=== PATIENT | female | born 1960 | race Caucasian/White ===

== ENCOUNTER 2018-02-01 13:23 | Inpatient (IN) ==
[2018-02-01] MEDS ORDERED: *HR* Heparin 5,000 UNIT/ML VIAL IVP PRN ×2 (16:06)
[2018-02-01] MEDS ORDERED: *HR* Heparin 5,000 UNIT/ML VIAL IVP ONE (16:06)
--- NOTE | 2018-02-01 16:09 | Internal Med History&Physical ---
Date of Encounter: 02/01/18 Time of Encounter: 15:00 Internal Medicine - H&P: HPI Admitted From: Home Plans for Post Hospital Care: Home History of present illness: Ms. Tao is a 57 year old female with past medical history, diabetes type II , obesity, elevated transaminases, gall stone, s/p ashanti and liver bx at [facility] January 20. She states she woke up this morning and checked her BP. States she noted that her HR was in the 150's. She had a scheduled appointment with her PCP today. While at PCP office, it was noted that she was in afib. She was sent to [place] ED for further work up and was transferred here for cardiology evaluation. P was started on Cardizem gtt and will add Heparin drip here. Pt's and other family members at bedside. Pt reports having chest pain. Her HR increases with increase in minimal activity followed by chest discomfort and SOB. In ED at [place] WBC 4.6, hgb 4.9, plt 275. INR 1.0. Troponin <0.03 Na 138, K 3.9, BUN 14, Cr 0.64. D dimer 1285. TSH 3.744. AST 67, ALT 58. CTA chest negative for PE. CT/CT angio chest IMPRESSION: No convincing evidence of pulmonary embolism or acute pulmonary abnormality ; a subtle focal filling defect in a subsegmental branch of the left lower lobe pulmonary artery is felt to be artifactual in nature. D/ / Ernie Cabrera / Ernie Cabrera Past Med Surg Social Fam HX - Past Medical History Medical history: diabetes, GERD, hypertension Psychiatric history: no psych history - Social History Smoking Status: Never smoker Smokeless Tobacco Status: No Alcohol use: rarely Drug use: none Internal Medicine - H&P: Meds Amlodipine Besylate 10 mg PO DAILY 02/01/18 [History] Cyclobenzaprine HCl [Cyclobenzaprine HCl] 10 mg PO TID 02/01/18 [History] Linagliptin [Tradjenta] 5 mg PO DAILY 02/01/18 [History] Lipase/Protease/Amylase [Zenpep Dr 40,000 Units Capsule] 1 each PO DAILY [History] Lisinopril/Hydrochlorothiazide [Zestoretic 10-12.5 mg Tablet] 1 each PO DAILY [History] Lovastatin 10 mg PO DAILY 02/01/18 [History] Metformin HCl [Glucophage] 1,000 mg PO BID 02/01/18 [History] Naproxen [Naprosyn] 500 mg PO DAILY 02/01/18 [History] Pantoprazole Sodium [Protonix] 40 mg PO DAILY 02/01/18 [History] Sertraline [Zoloft] 25 mg PO DAILY 02/01/18 [History] glyBURIDE [GlyBURIDE] 5 mg PO DAILY 02/01/18 [History] 3 Allergy/AdvReac Type Severity Reaction Status Date / Time Sulfa (Sulfonamide Allergy Hives Verified 02/01/18 09:18 Antibiotics) All Systems PM: A 10-system review of systems was performed and is negative for pertinent findings except as documented above in the HPI. - Constitutional Vitals: Temp Pulse Resp BP Pulse Ox 97.9 F 95 18 140/88 95 02/01/18 15:13 02/01/18 15:13 02/01/18 15:13 02/01/18 15:13 02/01/18 15:13 General appearance: Present: A&O X 3, morbidly obese - Head Head exam: Present: atraumatic, normocephalic - Eye Eye exam: Present: PERRL, conjuntiva pink, sclera anicteric Pupils: Present: PERRL - Neck Neck exam general surgery: Present: supple, trachea midline. Absent: lymphadenopathy - Respiratory Respiratory exam: Present: CTAB. Absent: accessory muscle use, rales, rhonchi, wheezes - Cardiovascular Cardiovascular exam: Present: RRR, +S1, +S2. Absent: diastolic murmur, gallop, rubs, systolic murmur - GI/Abdominal GI/Abdominal exam: Present: normal bowel sounds, soft, no peritoneal signs. Absent: distended, tenderness - Extremities Exam Extremities exam: Present: warm, radial pulses palpable and symmetrical. Absent : calf tenderness, cyanotic, pedal edema - Neurological Exam Neurological exam: Present: CN II-XII intact, oriented X3, no focal deficits. Absent: pronater drift, facial droop, speech deficit - Skin Skin exam: Present: dry, intact - Assessment and plan (1) Atrial fibrillation with rapid ventricular response Current Visit: No Status: Acute Assessment and plan: New onset Afib per pt. Will continue with cardizem gtt and will add Heparin. Ordering Echo. Will monitor on telemetry. Discussed with cardiology and will see in consult. NPO after midnight. (2) Chest pain Current Visit: Yes Status: Acute Assessment and plan: Will cycle troponin, ASA QD, and Nitro SL prn. Oxygen prn a well. Qualifiers: Qualified Code(s): R07.9 - Chest pain, unspecified (3) Type II diabetes mellitus Current Visit: Yes Status: Acute Assessment and plan: Glyburide, tradjenta, and Metformin. Will place on SSI and Lantus.Will monitor glucose. Qualifiers: Qualified Code(s): E11.9 - Type 2 diabetes mellitus without complications (4) Morbid obesity Current Visit: Yes Status: Acute Assessment and plan: Life style modification such as diet and exercise recommended. (5) Dyslipidemia Current Visit: Yes Status: Acute Assessment and plan: Lovastatin (6) HTN (hypertension) Current Visit: Yes Status: Acute Assessment and plan: Holding Norvac for now. Continue Zestorectic 10/12.5mg QD Qualifiers: Qualified Code(s): I10 - Essential (primary) hypertension - Time Spent With Patient Total time spent is greater than 50% in coordination of care (as documented) at patient's floor/unit and/or counseling patient: 25 - 35 minutes
[2018-02-01] MEDS ORDERED: Dextrose Gel 15 GM/37.5 ML TUBE PO PRN ×2 (16:19)
[2018-02-01] MEDS ORDERED: *HR* Dextrose 50 % in Water (Syg) 50 ML SYRINGE IVP PRN (16:19)
[2018-02-01] MEDS ORDERED: D5% in Water 1,000 ML IVC PRN (16:19)
[2018-02-01] MEDS ORDERED: Naloxone 0.4 MG/ML INJ IVP PRN (16:20)
[2018-02-01] MEDS ORDERED: Nitroglycerin 0.4 MG TAB.SUBL SL PRN (16:20)
[2018-02-01] MEDS ORDERED: Ondansetron 4 MG/2 ML VIAL IVP PRN (16:20)
[2018-02-01] MEDS ORDERED: Acetaminophen 325 MG TABLET PO PRN (16:20)
[2018-02-01 16:27] LABS: Hematocrit 39.9 % (35.3-44.9); Hemoglobin 13.8 g/dL (11.5-15.4); Mean Corpuscular HGB Conc 34.6 g/dL (31.6-35.5); Mean Corpuscular Hemoglobin 28.7 pg (28.0-33.3); Mean Platelet Volume 8.5 fL (9.4-12.4); Platelet Count 271 K/mcL (140-400); Red Blood Count 4.81 M/mcL (3.82-4.97); Red Cell Distribution Width 12.4 % (11.5-14.5)
[2018-02-01 16:31] LABS: Heparin anti-factor XA UFH 0.05 IU/mL (0.30-0.70)
[2018-02-01 16:32] LABS: INR 1.1; Prothrombin Time 12.1 Seconds (9.4-12.1)
[2018-02-01 17:01] LABS: Estimated Average Glucose 143 mg/dl; Hemoglobin A1C 6.6 %
[2018-02-01] MEDS: Insulin LISPRO 300 UNITS/3 ML VIAL SQ SCH (17:04)
[2018-02-01] MEDS: Heparin 25,000 UNIT/500 ML D5W 25,000 UNIT/500 ML BAG IVC SCH (17:18)
[2018-02-01] MEDS: Insulin DETEMIR 100 UNIT/ML X5UNITS SQ SCH (21:18)
[2018-02-01] MEDS ORDERED: Perflutren Lipid Microsphere 1.3 ML in 0.9 % Sodium Chloride 8.7 ML IVP ONE (22:25)
[2018-02-01] MEDS ORDERED: Perflutren Lipid Microsphere 2 ML VIAL ONE (22:28)
[2018-02-02 00:56] LABS: Basophils % 0.9 %; Eosinophils # 0.3 K/mcL (0.0-0.6); Eosinophils % 7.2 %; Hematocrit 39.7 % (35.3-44.9); Hemoglobin 13.6 g/dL (11.5-15.4); Immature Granulocytes % 0.4 % (0-4); Lymphocytes # 1.7 K/mcL (0.6-4.6); Lymphocytes % 37.9 %; Mean Corpuscular HGB Conc 34.3 g/dL (31.6-35.5); Mean Corpuscular Hemoglobin 28.8 pg (28.0-33.3); Mean Corpuscular Volume 84.1 fL (83.0-100.0); Mean Platelet Volume 8.8 fL (9.4-12.4); Monocytes # 0.3 K/mcL (0.0-1.3); Monocytes % 5.9 %; Neutrophils # 2.2 K/mcL (1.6-8.9); Platelet Count 260 K/mcL (140-400); Red Blood Count 4.72 M/mcL (3.82-4.97); Red Cell Distribution Width 12.6 % (11.5-14.5); Segmented Neutrophils % 47.7 %
[2018-02-02 01:01] LABS: Heparin anti-factor XA UFH 0.41 IU/mL (0.30-0.70); INR 1.1; Prothrombin Time 12.4 Seconds (9.4-12.1)
[2018-02-02 01:20] LABS: Alanine Aminotransferase 53 Units/L (7-52); Albumin 3.9 g/dL (3.5-5.7); Albumin/Globulin Ratio 1.2 (1.1-2.2); Alkaline Phosphatase 64 Units/L (34-104); Aspartate Amino Transferase 62 Units/L (13-39); BUN/Creatinine Ratio 21 (6-26); Bilirubin,Total 0.5 mg/dL (0.3-1.0); Blood Urea Nitrogen 13 mg/dL (6-20); Calcium 9.5 mg/dL (8.6-10.3); Carbon Dioxide 23 mEq/L (23-29); Chloride 103 mEq/L (98-107); Chol/HDL Ratio 4.4 (0-4.9); Cholesterol 166 mg/dL (< 200); Globulin 3.2 g/dL (2.4-3.5); Glucose 113 mg/dL (70-105); HDL Cholesterol 38 mg/dL (40-59); LDL Cholesterol,Calculated 80 mg/dL (0-99); Magnesium 1.8 mg/dL (1.6-2.6); Osmolality,Calculated 285 (280-300); Potassium 3.4 mEq/L (3.5-5.1); Sodium 137 mEq/L (136-145); Total Protein 7.1 g/dL (6.4-8.9); Triglycerides 242 mg/dL (< 150); Troponin I < 0.03 ng/mL (< 0.04); eGFR For Non-African Americans > 60 (> 60)
[2018-02-02] MEDS: Heparin 25,000 UNIT/500 ML D5W 25,000 UNIT/500 ML BAG IVC SCH (09:08)
[2018-02-02] MEDS: Aspirin 81 MG TAB.CHEW PO SCH (09:09)
[2018-02-02] MEDS: hydroCHLOROthiazide 25 MG TABLET PO SCH (09:10)
[2018-02-02] MEDS: Insulin LISPRO 300 UNITS/3 ML VIAL SQ SCH ×3 (09:10→16:43)
--- NOTE | 2018-02-02 09:23 | Cardiology Consult Note ---
Date of Encounter: 02/02/18 Time of Encounter: 08:45 Assessment and Plan (1) Atrial fibrillation with RVR Current Visit: Yes Status: Acute Pt presented with new onset A Fib with RVR , ventricular rate of 126 pm EKG -pt was started on Cardizem drip at 7.5mL/hr and Heparin drip running at 31.4 mL /hr -currently rate and rhythm controlled, monitoring on telemetry -troponins negative x 2 in the ER -CT of the chest was negative for PE Currently the pt is not in active chest pain and denies any SOB, palpiltations, N/V/D -she denies a personal hx of PR/prior LHC and denies a FH of early heart dz LVEF 60% Plan: -pt is on Aspirin 81mg PO daily -pt is on Cardizem 30mg PO q6hr Oral dose (in mg per day) = [rate (mg/hr) x 3 + 3] x 10, using this calculation the pt should be on ~255mg PO daily and is currently on 120mg PO caridzem daily, suggest increasing Cardizem dosage to 60mg PO q6hr for adequate control -continue on Cardizem 7.5mL/hr -continue telemetry monitoring -[id number] score of 3, pt would benefit from Coumadin or a NOAC. Will discuss prior to discharge which would be most beneficial for pt -Stress test today, nuclear medicine type (2) Dyslipidemia Current Visit: No Status: Chronic TG of 242, cholesterol 166, LDL 80. VLDL 48, HDL 38 -pt is not on a antilipid rx Plan: -add Lipitor 40mg PO daily -suggest lifestyle modifications (3) Hypokalemia Current Visit: Yes Status: Acute Pt has a Potassium of 3.4 today Plan -replaced with potassium chloride PO 40mEq once -check electrolytes in AM (4) HTN (hypertension) Current Visit: Yes Status: Acute BP on admission was 140/88 -BP this morning 120/79 Plan: -pt is on Lisinopril 10mg PO daily, HCTZ 12.5 mg PO daily -continue home meds Qualifiers: Hypertension type: essential hypertension Qualified Code(s): I10 - Essential (primary) hypertension Discussion w patient/family: The assessment and plan as outlined above was discussed with the patient and/or family members who expressed understanding and agreement. All questions were answered. Thank you for involving us in the care of your patient. Please call with any questions. History of Present Illness Consult date: 02/01/18 Requesting physician: Shikha Lane Consult reason: Afib with RVR Chief complaint: "high BP" History of present illness: Ms. Tao is a 57 year old female with a PMH of HTN, T2DM, and obesity. She is s/p cholecystectomy and liver bx at [facility] on January 20. The pt reports waking up yesterday morning and checking her BP, which was elevated from her baseline a 139/88 and HR at 151. She already had an appt with her PCP and went to her regular appt and was found to be in AFib. She was then sent to the [place] ED for further workup and then transferred to [place] for cardiology eval. -the pt was started on Cardizem and primary team added Heparin drip currently running at 31.4 mL/hr Pt reports having chest pain yesterday that was located on the left side and associated with palpiltations -she denies having any nausea/vomiting -her HR increases with increased activity and she has CP/SOB when she exerts herself too much -she is unable to lay completely flat and c/o SOB when she has to. In the ER the pt had a CT of the chest which was negative for PE -she had negative troponins <0.03 x2 EKG yesterday showed a fib with RVR and nonspecific ST and T wave abnormality -pt is currently on telemtry and she has a regular rate and rhythm -HR at 62 bpm, BP 120/79 Pt denies any CAD, heart attacks in the past or hx of stents -she denies an early FH of heart dz Fluids - none Electrolytes - Potassium at 3.4, will replace Nutrition - currently NPO DVT prophylaxis - on heparin drip GI prophylaxis - omeprazole 40mg PO daily Past Med Surg Social Fam HX - Past Medical History Medical history: diabetes, GERD, hypertension Psychiatric history: no psych history - Social History Smoking Status: Never smoker Smokeless Tobacco Status: No Alcohol use: rarely Drug use: none - Family History Mother Living Status: Hx Family Cardiac Disorders: Yes Father Hx Family Cardiac Disorders: Yes Medications and Allergies Linagliptin [Tradjenta] 5 mg PO DAILY 02/01/18 [History] Lipase/Protease/Amylase [Zenpep Dr 40,000 Units Capsule] 1 each PO DAILY [History] Metformin HCl [Glucophage] 1,000 mg PO BID 02/01/18 [History] Pantoprazole Sodium [Protonix] 40 mg PO DAILY 02/01/18 [History] Lisinopril/Hydrochlorothiazide [Zestoretic 20-25 mg Tablet] 1 tab PO DAILY 02/02 [History] 3 Allergy/AdvReac Type Severity Reaction Status Date / Time Sulfa (Sulfonamide Allergy Hives Verified 02/02/18 08:43 Antibiotics) All Systems Review: The remainder of the systems were reviewed and are negative - Constitutional Constitutional: no fever(s), no snoring, no stops breathing during sleep - Cardiovascular Cardiovascular: chest pain with exertion, dyspnea on exertion, irregular heart rhythm, orthopnea, palpitations, paroxysmal nocturnal dyspnea, no diaphoresis - Respiratory Respiratory: no cough, no wheezing - Gastrointestinal Gastrointestinal: abdominal pain, no diarrhea, no nausea - Neurological Neurological: no numbness, no tingling Physical Examination Vital Signs, Last 4 Hours Temp Pulse Resp BP Pulse Ox 02/02/18 07:03 98.4 F 62 15 120/79 98 General: Conversant, No Apparent Distress HEENT: Atraumatic, Normocephaly Neck: No JVD Cardiac: Reg Rate and Rhythm, Normal S1 and S2, No Murmur Lungs: Normal Breath Sounds, No Wheeze, Rales, Rhonchi Neuro: Alert and responsive, No focal deficits noted Abdomen: Other (TTP in the RUQ where cholecystectomy was done) Skin: No rashes noted on visualized skin Musculoskeletal: No Chest Wall Tenderness Extremities: No Edema Results 02/02/18 00:02 02/02/18 00:02 Lab Results 02/01/18 02/01/18 02/01/18 16:17 16:17 16:30 WBC 5.2 Hgb 13.8 Hct 39.9 Plt Count 271 INR 1.1 Sodium Potassium Chloride Carbon Dioxide BUN Creatinine Glucose Calcium Magnesium Total Bilirubin AST ALT Alkaline Phosphatase Troponin I < 0.03 02/02/18 02/02/18 02/02/18 00:02 00:02 00:02 WBC 4.6 Hgb 13.6 Hct 39.7 Plt Count 260 INR 1.1 Sodium 137 Potassium 3.4 L Chloride 103 Carbon Dioxide 23 BUN 13 Creatinine 0.62 Glucose 113 H Calcium 9.5 Magnesium 1.8 Total Bilirubin 0.5 AST 62 H ALT 53 H Alkaline Phosphatase 64 Troponin I < 0.03 02/02/18 05:33 WBC Hgb Hct Plt Count INR Sodium Potassium Chloride Carbon Dioxide BUN Creatinine Glucose Calcium Magnesium Total Bilirubin AST ALT Alkaline Phosphatase Troponin I < 0.03 Consult Discharge Plan - Plan Instructions: Diltiazem (By mouth), Atrial Fibrillation (DC), Atrial Fibrillation (GEN), Chest Pain (DC), Diabetes Mellitus Type 2 in Adults (DC), Chronic Hypertension (DC) Additional Instructions: 's office will call patient for follow up appointment. Referrals: Mary Foy, NAIDA [Primary Care Provider] - ('s office will call patient for follow up appointment.)
[2018-02-02] MEDS ORDERED: Regadenoson 0.4 MG/5 ML SYRINGE IVP ONE (12:22)
--- NOTE | 2018-02-02 14:34 | Event Note ---
Date of Encounter: 02/02/18 Time of Encounter: 14:30 Converting the short acting cardizem 30mg PO q6hr to LA 120mg once daily. -first dose now and will see how pt is tolerating it
[2018-02-02] MEDS: Diltiazem CD (24hr) 120 MG CAPSULE PO SCH (15:17)
--- NOTE | 2018-02-02 18:00 | Internal Med Progress Note ---
<AlejandroShahrzad Zuri - Last Filed: 02/02/18 18:14> Hospitalist Progress Note - Encounter Date of Encounter: 02/02/18 Time of Encounter: 09:30 - Subjective Interval History: Today is hospital day 1, Ms. Tao states that she is feeling a bit better. She states that she has a headache behind both eyes that is described as a tingling sensation which began after the cardizem and heparin drips were started. She states that it is similar to headaches she has had in the past and she denies any neurological deficits. She states that the palpitations and chest pressure she experienced earlier while heart rate uncontrolled have resolved. She states that shortness of breath is still present at exertion. She states that it is painful for her to take a deep breath but that is unchanged since her lap ashanti and liver biopsy on January 20, 2018. She states that she also has abdominal pain around laparoscopy incisions that is still present from procedure. She denies any fever, chills, nausea, vomiting, constipation, diarrhea, frequency, urgency or calf pain. - Exam Vitals: Temp Pulse Resp BP Pulse Ox 98.2 F 62 15 138/85 97 02/02/18 16:00 02/02/18 16:00 02/02/18 16:00 02/02/18 16:00 02/02/18 16:00 Exam: General: Resting comfortably, in no acute distress, AAOx3, pleasant, nasal cannula in place HEENT: Normocephalic, atraumatic, EOMI, PERRL, mucus membranes moist. Neck soft , supple, trachea midline, no cervical lymphadenopathy. Cardio: RRR, no murmurs, rubs or gallops. Normal S1, S2. No carotid bruits. Pulmonary: No wheezes, rales or rhonchi. No accessory respiratory muscle use. Abdomen: Tenderness to palpation around lap cholecystectomy incisions, incisions healing well and no signs of infection. Soft, non distended, normal bowel sounds, no guarding, rebound or rigidity. No CVA or suprapubic tenderness. Extremities: Radial and dorsal pedis pulses 2+ and symmetrical, normal capillary refill, no clubbing. No calf tenderness. Trace pitting edema bilaterally Neuro: CN 2-12 intact, no focal deficits. Psych: Normal mood and affect, answers questions appropriately - Assessment and Plan (1) Atrial fibrillation with RVR Current Visit: Yes Status: Acute Assessment and Plan: New onset EKG 02/01/18 showed atrial fibrillation with rapid ventricular rate and non specific ST and T wave abnormalities ECHO 02/01/18 showed LVEF 60%, indeterminate diastolic function, mild tricuspid and pulmonic regurgitation, no pulmonary hypertension. Continue heparin drip Continue cardizem po, aspirin Cardio recs for oysterman anticoagulant continue to monitor (2) Type II diabetes mellitus Current Visit: Yes Status: Acute Assessment and Plan: Glucose today 113 continue low dose sliding scale and levemir hold home meds: metformin, glyburide, tradjenta. continue to monitor (3) HTN (hypertension) Current Visit: Yes Status: Acute Assessment and Plan: Controlled, 120/79 at time of interview continue home meds hydrochlorothiazide and lisinopril continue to monitor (4) Dyslipidemia Current Visit: No Status: Chronic Assessment and Plan: Continue statin (5) Hypokalemia Current Visit: Yes Status: Acute Assessment and Plan: Was 3.4 today, replaced by cardio. Continue to monitor DVT Prophylaxis: Heparin drip - Time Spent with Patient Total time spent is greater than 50% in coordination of care (as documented) at patient's floor/unit and/or counseling patient: Internal Medicine: Result - Labs CBC & Chem 7: 02/02/18 00:02 02/02/18 00:02 Labs: Short CBC 02/02/18 Range/Units 00:02 WBC 4.6 (4.3-11.1) K/mcL Hgb 13.6 (11.5-15.4) g/dL Hct 39.7 (35.3-44.9) % Plt Count 260 (140-400) K/mcL Neutrophils # 2.2 (1.6-8.9) K/mcL BMP 02/02/18 00:02 Sodium 137 Potassium 3.4 L Chloride 103 Carbon Dioxide 23 BUN 13 Creatinine 0.62 Glucose 113 H Calcium 9.5 Cardiac Enzymes 02/02/18 02/02/18 Range/Units 00:02 05:33 Troponin I < 0.03 < 0.03 (< 0.04) ng/mL Liver Function 02/02/18 Range/Units 00:02 Total Bilirubin 0.5 (0.3-1.0) mg/dL AST 62 H (13-39) Units/L ALT 53 H (7-52) Units/L Alkaline Phosphatase 64 (34-104) Units/L Albumin 3.9 (3.5-5.7) g/dL - ABG Interpretation ABG results: PT/INR, D-dimer PT 12.4 Seconds (9.4-12.1) H 02/02/18 00:02 - Impressions Impressions Echocardiogram 02/01/18 16:20 Impressions: LVEF 60%. Indeterminate diastolic function. Normal right ventricular structure and function. Mild tricuspid regurgitation. Mild pulmonic regurgitation. No pulmonary hypertension by TR gradient. Left Ventricular Wall Motion: Rest Echo Findings All wall segments showed normal motion. Findings: Study Quality * Technically adequate exam. ECG Findings * Normal sinus rhythm. Left Ventricle * LVEF 60%. * Indeterminate diastolic function. * Definity echo contrast was used. * Normal LV chamber size and wall thickness. Right Ventricle * Normal right ventricular structure and function. Left Atrium * Moderately dilated left atrium. Right Atrium * Normal right atrial size. Aortic Valve * No aortic regurgitation. * Trileaflet aortic valve. * No aortic stenosis. Mitral Valve * Normal mitral valve structure. * No mitral stenosis. * Trace mitral regurgitation. Tricuspid Valve * Normal tricuspid valve structure. * Mild tricuspid regurgitation. Pulmonic Valve * Pulmonic valve is not well visualized. * No pulmonic stenosis. * Mild pulmonic regurgitation. Pulmonary Artery * Pulmonary artery not well visualized. Aorta * Normally sized aortic root. Pericardium * There is no pericardial effusion present. Interatrial Septum * Interatrial septum not well evaluated. IVC * The IVC is not well evaluated. Consult Discharge Plan - Plan Instructions: Diltiazem (By mouth), Atrial Fibrillation (DC), Atrial Fibrillation (GEN), Chest Pain (DC), Diabetes Mellitus Type 2 in Adults (DC), Chronic Hypertension (DC) Additional Instructions: 's office will call patient for follow up appointment. Referrals: Mary Foy CNP [Primary Care Provider] - ('s office will call patient for follow up appointment.) <Breezy Ball - Last Filed: 02/02/18 19:13> Hospitalist Progress Note - Encounter Date of Encounter: 02/02/18 - Exam Vitals: Temp Pulse Resp BP Pulse Ox 98.2 F 62 15 138/85 97 02/02/18 16:00 02/02/18 16:00 02/02/18 16:00 02/02/18 16:00 02/02/18 16:00 - Assessment and Plan (1) Chest pain Current Visit: Yes Status: Suspected (2) Paroxysmal A-fib Current Visit: Yes Status: Acute (3) HTN (hypertension) Current Visit: Yes Status: Acute (4) Hypokalemia Current Visit: Yes Status: Acute (5) Type II diabetes mellitus Current Visit: Yes Status: Acute (6) Morbid obesity Current Visit: Yes Status: Acute - Time Spent with Patient Total time spent is greater than 50% in coordination of care (as documented) at patient's floor/unit and/or counseling patient: Internal Medicine: Result - Labs CBC & Chem 7: 02/02/18 00:02 02/02/18 00:02 Labs: Short CBC 02/02/18 Range/Units 00:02 WBC 4.6 (4.3-11.1) K/mcL Hgb 13.6 (11.5-15.4) g/dL Hct 39.7 (35.3-44.9) % Plt Count 260 (140-400) K/mcL Neutrophils # 2.2 (1.6-8.9) K/mcL BMP 02/02/18 00:02 Sodium 137 Potassium 3.4 L Chloride 103 Carbon Dioxide 23 BUN 13 Creatinine 0.62 Glucose 113 H Calcium 9.5 Cardiac Enzymes 02/02/18 02/02/18 Range/Units 00:02 05:33 Troponin I < 0.03 < 0.03 (< 0.04) ng/mL Liver Function 02/02/18 Range/Units 00:02 Total Bilirubin 0.5 (0.3-1.0) mg/dL AST 62 H (13-39) Units/L ALT 53 H (7-52) Units/L Alkaline Phosphatase 64 (34-104) Units/L Albumin 3.9 (3.5-5.7) g/dL - ABG Interpretation ABG results: PT/INR, D-dimer PT 12.4 Seconds (9.4-12.1) H 02/02/18 00:02 - Impressions Impressions Echocardiogram 02/01/18 16:20 Impressions: LVEF 60%. Indeterminate diastolic function. Normal right ventricular structure and function. Mild tricuspid regurgitation. Mild pulmonic regurgitation. No pulmonary hypertension by TR gradient. Left Ventricular Wall Motion: Rest Echo Findings All wall segments showed normal motion. Findings: Study Quality * Technically adequate exam. ECG Findings * Normal sinus rhythm. Left Ventricle * LVEF 60%. * Indeterminate diastolic function. * Definity echo contrast was used. * Normal LV chamber size and wall thickness. Right Ventricle * Normal right ventricular structure and function. Left Atrium * Moderately dilated left atrium. Right Atrium * Normal right atrial size. Aortic Valve * No aortic regurgitation. * Trileaflet aortic valve. * No aortic stenosis. Mitral Valve * Normal mitral valve structure. * No mitral stenosis. * Trace mitral regurgitation. Tricuspid Valve * Normal tricuspid valve structure. * Mild tricuspid regurgitation. Pulmonic Valve * Pulmonic valve is not well visualized. * No pulmonic stenosis. * Mild pulmonic regurgitation. Pulmonary Artery * Pulmonary artery not well visualized. Aorta * Normally sized aortic root. Pericardium * There is no pericardial effusion present. Interatrial Septum * Interatrial septum not well evaluated. IVC * The IVC is not well evaluated. - Attending Attestation I examined this patient and my medical decision-making was reviewed with the Resident Physician on 02/02/18. I agree with the documented findings, disposition and treatment plan as described except to the extent set forth below. Ms Tao is currently admitted for new paroxysmal a fib. She is getting stress test and is on heparin drip. She remains moderate to high risk due to potential for worsening clinical status. Ms Tao is feeling OK. She is now in sinus rhythm. She had first part of stress today. Currently on heparin drip and tolerating this. Exam alert Comfortable Mucus membranes dry Heart reg No wheeze Abd soft No edema I/P 1. A fib 2. Obesity Further diagnoses and plan as above. <Shahrzad Allen - Last Filed: 02/02/18 18:14> (3) HTN (hypertension) Qualifiers: Hypertension type: essential hypertension Qualified Code(s): I10 - Essential (primary) hypertension <Breezy Ball - Last Filed: 02/02/18 19:13> (1) Chest pain Qualifiers: Chest pain type: chest pain due to myocardial ischemia Ischemic chest pain type: unstable angina pectoris Qualified Code(s): I20.0 - Unstable angina (3) HTN (hypertension) Qualifiers: Hypertension type: essential hypertension Qualified Code(s): I10 - Essential (primary) hypertension (5) Type II diabetes mellitus Qualifiers: Diabetes mellitus fpc insulin use: without oysterman use Diabetes mellitus complication status: without complication Qualified Code(s): E11.9 - Type 2 diabetes mellitus without complications
[2018-02-02] MEDS: Insulin DETEMIR 100 UNIT/ML X5UNITS SQ SCH (20:55)
[2018-02-03] MEDS: Heparin 25,000 UNIT/500 ML D5W 25,000 UNIT/500 ML BAG IVC SCH (01:15)
[2018-02-03 04:55] LABS: Alanine Aminotransferase 63 Units/L (7-52); Albumin/Globulin Ratio 1.3 (1.1-2.2); Alkaline Phosphatase 63 Units/L (34-104); Aspartate Amino Transferase 76 Units/L (13-39); BUN/Creatinine Ratio 16 (6-26); Bilirubin,Total 0.5 mg/dL (0.3-1.0); Blood Urea Nitrogen 9 mg/dL (6-20); Calcium 9.3 mg/dL (8.6-10.3); Carbon Dioxide 22 mEq/L (23-29); Chloride 104 mEq/L (98-107); Globulin 3.2 g/dL (2.4-3.5); Glucose 134 mg/dL (70-105); Osmolality,Calculated 283 (280-300); Sodium 136 mEq/L (136-145); Total Protein 7.2 g/dL (6.4-8.9); eGFR For Non-African Americans > 60 (> 60)
[2018-02-03] MEDS: hydroCHLOROthiazide 25 MG TABLET PO SCH (07:47)
[2018-02-03] MEDS: Diltiazem CD (24hr) 120 MG CAPSULE PO SCH (07:47)
[2018-02-03] MEDS: Aspirin 81 MG TAB.CHEW PO SCH (07:48)
[2018-02-03] MEDS: Insulin LISPRO 300 UNITS/3 ML VIAL SQ SCH ×2 (07:51→12:39)
--- NOTE | 2018-02-03 09:16 | Cardiology Progress Note ---
Date of Encounter: 02/03/18 Time of Encounter: 08:30 Assessment and Plan (1) Atrial fibrillation with RVR Current Visit: Yes Status: Resolved Pt presented with new onset A Fib with RVR , ventricular rate of 126 pm EKG. Admitted 02/01/18, hospital day #2 -pt was started on Cardizem drip at 7.5mL/hr and Heparin drip running at 31.4 mL /hr, was transitioned to PO Cardizem 120mg and heparin drip discontinued today -currently rate and rhythm controlled, monitoring on telemetry -in normal sinus rhythm, HR 60 bpm -troponins negative x 2 in the ER -CT of the chest was negative for PE Currently the pt is not in active chest pain and denies any SOB, palpiltations, N/V/D -she denies a personal hx of VT/prior LHC and denies a FH of early heart dz ECHO yesterday showed LVEF 60%, mild tricuspid regurg, mild pulmonic regurg, no pHTN Pt got second part of stress test this morning, results are negative for ischemia/infarct, gated EF >70% Plan: -pt is on Aspirin 81mg PO daily -pt is on Cardizem 120 mg PO daily, tolerating this dose and is in normal sinus rhythm -continue telemetry monitoring -discontinue heparin drip -[id number] score of 3 -Start Xarelto 20mg PO daily -pt stable from a cardiology standpoint for discharge and we will sign off at this point (2) Dyslipidemia Current Visit: No Status: Chronic TG of 242, cholesterol 166, LDL 80. VLDL 48, HDL 38 -pt is not on a antilipid rx Plan: -add Lipitor 40mg PO daily -suggest lifestyle modifications (3) HTN (hypertension) Current Visit: Yes Status: Acute BP on admission was 140/88 -BP this morning 120/67 -adequate control Plan: -pt is on Lisinopril 10mg PO daily, HCTZ 12.5 mg PO daily -continue home meds Qualifiers: Hypertension type: essential hypertension Qualified Code(s): I10 - Essential (primary) hypertension Discussion w patient/family: The assessment and plan as outlined above was discussed with the patient and/or family members who expressed understanding and agreement. All questions were answered. Thank you for involving us in the care of your patient. Please call with any questions. Subjective Principal diagnosis: A fib with RVR Interval history: Pt is seen at bedside. She has no new complaints. She states that she went down for the second part of her stress test this morning. -pt is feeling much better, she states that she has no chest pain/SOB/ palpiltations or N/V/D. Denies abd pain -she was admitted 02/01/18 for a fib with RVR The pt was started on Cardizem and still has a heparin drip running -she was transitioned to PO cardizem at 120mg daily ECHO (02/02/18) showed LVEF 60%, mild TR and mild pulmonary regurgitation, no pHTN -stress test results pending The pt denies a hx of cardiac dz, prior stents, or prior LHC. Fluids - none Electrolytes - all WNL Nutrition - tolerating cardiac diet DVT prophylaxis - on heparin drip GI prophylaxis - omeprazole 40mg PO daily Objective Vital Signs, Last 4 Hours Temp Pulse Resp BP Pulse Ox 02/03/18 07:20 98.1 F 60 16 120/67 97 General: Conversant, No Apparent Distress HEENT: Atraumatic, Normocephaly Neck: No JVD Cardiac: Reg Rate and Rhythm, Normal S1 and S2, No Murmur Lungs: Normal Breath Sounds, No Wheeze, Rales, Rhonchi Neuro: Alert and responsive, No focal deficits noted Abdomen: Soft Skin: No rashes noted on visualized skin Musculoskeletal: No Chest Wall Tenderness Extremities: No Edema Results 02/02/18 00:02 02/03/18 03:59 Lab Results 02/03/18 03:59 Sodium 136 Potassium 4.0 Chloride 104 Carbon Dioxide 22 L BUN 9 Creatinine 0.57 L Glucose 134 H Calcium 9.3 Total Bilirubin 0.5 AST 76 H ALT 63 H Alkaline Phosphatase 63 Consult Discharge Plan - Plan Instructions: Diltiazem (By mouth), Atrial Fibrillation (DC), Atrial Fibrillation (GEN), Chest Pain (DC), Diabetes Mellitus Type 2 in Adults (DC), Chronic Hypertension (DC) Additional Instructions: 's office will call patient for follow up appointment. Referrals: Mary Foy, NAIDA [Primary Care Provider] - ('s office will call patient for follow up appointment.)
--- NOTE | 2018-02-03 14:15 | Discharge Summary ---
<Shahrzad Allen - Last Filed: 02/03/18 14:40> - NOTES TO OUTPATIENT PROVIDER Notes to Outpatient Provider: Outpatient sleep study for follow up on symptoms of sleep apnea. Cardizem 120 mg qd. Xarelto 20 mg qd Orders not resulted at time of discharge: Pending orders 02/02/18 11:38 NM wesley perf SPECT multi [NM] Routine 02/04/18 04:00 Heparin anti-factor XA UFH [COAG] Timed Date of Encounter: 02/03/18 Time of Encounter: 11:00 - Discharge Diagnosis (1) Atrial fibrillation with RVR Priority: Primary Status: Acute (2) Type II diabetes mellitus Priority: Secondary Status: Chronic Qualifiers: Diabetes mellitus care home insulin use: without care home use Diabetes mellitus complication status: without complication Qualified Code(s): E11.9 - Type 2 diabetes mellitus without complications (3) HTN (hypertension) Priority: Secondary Status: Chronic Qualifiers: Hypertension type: essential hypertension Qualified Code(s): I10 - Essential (primary) hypertension (4) Dyslipidemia Priority: Secondary Status: Chronic Hospital course: Ms. Tao is a 57 year old female who presented on 02/01/18 after appointment with PCP when found to be in new onset paroxysmal atrial fibrillation. She was sent from there to [place] ED and then transferred to [place] for cardiology evaluation. She was complaining of increased heart rate, chest discomfort and shortness of breath on exertion. She is status post cholecystectomy and liver biopsy on January 20, 2018 and has a past medical history of diabetes, GERD, hypertension, and obesity. Troponins were negative x2, D dimer at [place] was 1285. EKG 02/01/18 showed atrial fibrillation with rapid ventricular rate and non specific ST and T wave abnormalities. CTA chest 02/01/18 was negative for pulmonary embolism. ECHO 02/01/18 showed LVEF 60%, mild tricuspid and pulmonic regurgitation, no pulmonary hypertension. She was started on cardizem drip, heparin drip and aspirin. She converted to normal sinus rhythm. Nuclear stress test performed, perfusion imaging was negative for ischemia or infarct and pharmacologic stress ECG is negative for ischemia at level of heart rate. [id number] score of 3. Cardizem was then switched to PO and xarelto was started. Discharge discussed with: patient (35) - Time Spent with Patient Total time spent providing and/or coordinating discharge services: Greater than 30 minutes (33) - Discharge Medications Prescriptions: Atorvastatin [Lipitor] 40 mg PO HS #30 tablet Diltiazem CD (24hr) [Cardizem CD] 120 mg PO DAILY #30 cap.er.24h Rivaroxaban [Xarelto] 20 mg PO DAILY #30 tablet Home Medications: Linagliptin [Tradjenta] 5 mg PO DAILY 02/01/18 [History] Metformin HCl [Glucophage] 1,000 mg PO BID 02/01/18 [History] Pantoprazole Sodium [Protonix] 40 mg PO DAILY 02/01/18 [History] Lisinopril/Hydrochlorothiazide [Zestoretic 20-25 mg Tablet] 1 tab PO DAILY 02/02 [History] Aspirin 81 mg PO DAILY tab.chew 02/03/18 [Rx] Atorvastatin [Lipitor] 40 mg PO HS tablet 02/03/18 [Rx] Atorvastatin [Lipitor] 40 mg PO HS #30 tablet 02/03/18 [Rx] Cyclobenzaprine [Flexeril] 10 mg PO TID PRN tablet 02/03/18 [Rx] Diltiazem CD (24hr) [Cardizem CD] 120 mg PO DAILY #30 cap.er.24h 02/03/18 [Rx] Rivaroxaban [Xarelto] 20 mg PO DAILY #30 tablet 02/03/18 [Rx] Sertraline [Zoloft] 25 mg PO DAILY tablet 02/03/18 [Rx] Allergies/Adverse Reactions: 3 Allergy/AdvReac Type Severity Reaction Status Date / Time Sulfa (Sulfonamide Allergy Hives Verified 02/02/18 08:43 Antibiotics) Date of admission: 02/01/18 16:21 Primary care physician: Mary Foy Consults: 02/01/18 16:20 Consult to Cardiology [CONS] Routine Comment: afib rvr Consulting Provider: Zenaida Sandoval Reason for Consult: afib rvr Call Completed: Yes Discharging clinician: Shahrzad Allen Anticipated date of discharge: 02/03/18 - Constitutional Vitals: Temp Pulse Resp BP Pulse Ox 97.9 F 68 15 124/67 94 02/03/18 10:26 02/03/18 10:26 02/03/18 10:26 02/03/18 10:26 02/03/18 10:26 General appearance: Present: A&O X 3, morbidly obese, pleasant, no acute distress - Head Head exam: Present: atraumatic, normocephalic - Eye Eye exam: Present: PERRL, conjuntiva pink, sclera anicteric Pupils: Present: PERRL - Neck Neck exam general surgery: Present: supple, trachea midline. Absent: lymphadenopathy, tenderness, thyromegaly - Respiratory Respiratory exam: Present: CTAB. Absent: accessory muscle use, rales, rhonchi, wheezes - Cardiovascular Cardiovascular exam: Present: RRR, +S1, +S2. Absent: diastolic murmur, gallop, JVD, rubs, systolic murmur - GI/Abdominal GI/Abdominal exam: Present: normal bowel sounds, soft, no peritoneal signs. Absent: distended, guarding, hepatomegaly, splenomegaly, tenderness Additional comments: Tenderness to palpation around healing incisions from laparoscopic cholecystectomy. Incisions healiing well, no erythema, discharge or swelling. - Extremities Exam Extremities exam: Present: pedal edema, warm, radial pulses palpable and symmetrical. Absent: calf tenderness, cyanotic Additional comments: Trace pitting edema bilaterally - Neurological Exam Neurological exam: Present: CN II-XII intact, oriented X3, no focal deficits. Absent: pronater drift, facial droop, speech deficit - Psychiatric Psychiatric exam: Present: normal affect, normal mood - Patient Status Disposition: Home, Self-Care Condition: Good Overall status at discharge: patient is progressing back to baseline - Discharge Instructions Instructions: Diltiazem (By mouth), Rivaroxaban (By mouth), Atrial Fibrillation (DC), Chest Pain (DC), Diabetes Mellitus Type 2 in Adults (DC), Chronic Hypertension (DC) Follow Up With: Mary Foy, P[employer]PERATOR [Primary Care Provider] - (Dr's office will call patient for follow up appointment.) Additional Instructions: 's office will call patient for follow up appointment. - Diet and Activity Activity: increase activity as tolerated Diet: diabetic diet <Breezy Ball - Last Filed: 02/03/18 20:37> Orders not resulted at time of discharge: Pending orders 02/02/18 11:38 NM wesley perf SPECT multi [NM] Routine Date of Encounter: 02/03/18 - Discharge Diagnosis (1) Chest pain Priority: Secondary Status: Resolved Qualifiers: Chest pain type: chest pain due to myocardial ischemia Ischemic chest pain type: unstable angina pectoris Qualified Code(s): I20.0 - Unstable angina (2) Paroxysmal A-fib Priority: Primary Status: Chronic (3) HTN (hypertension) Status: Chronic Qualifiers: Hypertension type: essential hypertension Qualified Code(s): I10 - Essential (primary) hypertension (4) Hypokalemia Priority: Secondary Status: Resolved (5) Type II diabetes mellitus Status: Chronic Qualifiers: Diabetes mellitus care home insulin use: without termination clerk use Diabetes mellitus complication status: without complication Qualified Code(s): E11.9 - Type 2 diabetes mellitus without complications (6) Morbid obesity Priority: Secondary Status: Chronic Hospital course: Ms. Tao is a 57 year old female - Time Spent with Patient Total time spent providing and/or coordinating discharge services: Date of admission: 02/01/18 16:21 Primary care physician: Mary Foy Consults: 02/01/18 16:20 Consult to Cardiology [CONS] Routine Comment: afib rvr Consulting Provider: Zenaida Sandoval Reason for Consult: afib rvr Call Completed: Yes - Constitutional Vitals: Temp Pulse Resp BP Pulse Ox 97.7 F 65 15 118/69 94 02/03/18 14:55 02/03/18 14:55 02/03/18 14:55 02/03/18 14:55 02/03/18 14:55 - Attending Attestation I examined this patient and my medical decision-making was reviewed with the Resident Physician on 02/03/18. I agree with the documented findings, disposition and treatment plan as described except to the extent set forth below. Ms Tao has been admitted for new rapid a fib. Stress test negative and she has converted to NSR. She has been started on Cardizem and Xarelto and is ready for discharge home. Exam alert Comfortable Mucus membranes dry Heart reg No wheeze No edema Plan D/C home
[2018-02-03 14:59] VITALS: BP 118/69
[2018-02-03] MEDS ORDERED: *HR* Rivaroxaban 10 MG TABLET PO SCH (17:00)
== END 2018-02-03 16:27 | disposition home or self-care (01) | DRG 309 ==
LOC: 2NENU → SUATTDRO 16:21
PROVIDERS: ADMIT Internal Medicine; ATTEND Internal Medicine